=== PATIENT | male | born 1950 | race Caucasian/White ===

== ENCOUNTER 2018-09-22 14:14 | Observation (INO) ==
[2018-09-22 15:05] LABS: Basophils # 0.1 10*3/uL (0.0-0.2); Basophils % 1.6 % (0.0-0.8); Eosinophils # 0.1 10*3/uL (0.0-0.87); Eosinophils % 3.3 % (0.00-10.9); Hematocrit 40.8 VOL% (42.0-52.0); Hemoglobin 13.7 GM/DL (14.0-18.0); Immature Granulocytes % 1.2 %; Immature Granulocytes Absolute 0.05 #; Lymphocytes # 1.2 10*3/uL (1.4-4.0); Lymphocytes % 28.9 % (21.2-54.2); Mean Corpuscular HGB Conc 33.6 GM/DL (32-36); Mean Corpuscular Hemoglobin 29 PG (27-34); Mean Corpuscular Volume 86.1 FL (87-102); Mean Platelet Volume 11.3 FL (9.6-12.0); Monocytes # 0.6 10*3/uL (0.11-0.8); Monocytes % 14.8 % (1.7-12.7); Neutrophils # 2.1 10*3/uL (1.4-7.4); Neutrophils % 50.2 % (38.7-73.9); Platelet Count 291 T/CUMM (130-400); Red Blood Count 4.74 MC/CUMM (3.8-5.5); Red Cell Distribution Width 12.3 % (9.3-17.3); White Blood Count 4.3 T/CUMM (4-12)
[2018-09-22 15:11] LABS: PT Patient Result 10.6 SECS; Partial Thromboplastin Time 27.5 SECS (0-40)
[2018-09-22 15:21] LABS: Alanine Aminotransferase 65 U/L (16-61); Albumin 4.5 G/DL (3.4-5.0); Alkaline Phosphatase 77 U/L (45-117); Aspartate Amino Transferase 38 U/L (0-37); Bilirubin,Total < 0.39 MG/DL (0.2-1.0); Blood Urea Nitrogen 17 MG/DL (7-18); Calcium 9.2 MG/DL (8.5-10.1); Glucose 199 MG/DL (74-106); Osmolality,Calculated 280.8 MOS/KG (273-304); Potassium 4.2 MMOL/L (3.5-5.1); Sodium 137 MMOL/L (136-145); Total Protein 8.1 G/DL (6.4-8.3)
[2018-09-22] MEDS ORDERED: ASPIRIN 325 MG TABLET PO STA (16:47)
[2018-09-22] MEDS ORDERED: ALUM/MAG/SIMETH/LIDO VISC 1:1 30 ML BOTTLE PO STA (16:47)
[2018-09-22] MEDS ORDERED: ONDANSETRON 4 MG/2 ML VIAL IV PRN ×2 (16:47→19:12)
[2018-09-22] MEDS ORDERED: GLUCAGON 1 MG VIAL IM PRN (19:12)
[2018-09-22] MEDS ORDERED: DEXTROSE 50% 25 GM/50 ML SYRINGE IV PRN (19:12)
[2018-09-22] MEDS ORDERED: ACETAMINOPHEN 325 MG TABLET PO PRN (19:12)
[2018-09-22] MEDS ORDERED: ENOXAPARIN 40 MG/0.4 ML SYRINGE SUBCUT SCH (21:00)
[2018-09-22] MEDS: DOCUSATE SODIUM 100 MG CAPSULE PO SCH (21:09)
[2018-09-22] MEDS: SODIUM CHLORIDE 0.9% 1,000 ML IV SCH (21:09)
[2018-09-22] MEDS: INSULIN LISPRO 100 UNIT/ML SUBCUT SCH (21:53)
[2018-09-23] MEDS: SODIUM CHLORIDE 0.9% 1,000 ML IV SCH ×2 (04:20→11:43)
[2018-09-23 07:40] LABS: Troponin I < 0.015 NG/ML (0.00-0.045)
[2018-09-23] MEDS: INSULIN LISPRO 100 UNIT/ML SUBCUT SCH ×3 (08:59→15:54)
[2018-09-23] MEDS ORDERED: VITAMIN E 400 UNIT CAPSULE PO SCH (09:00)
[2018-09-23] MEDS ORDERED: ASPIRIN EC 81 MG TABLET PO SCH (09:00)
[2018-09-23] MEDS ORDERED: PANTOPRAZOLE 40 MG TABLET PO SCH ×2 (09:00→21:00)
[2018-09-23] MEDS ORDERED: GEMFIBROZIL 600 MG TABLET PO SCH (09:00)
[2018-09-23] MEDS ORDERED: LISINOPRIL 2.5 MG TABLET PO SCH (09:00)
[2018-09-23] MEDS ORDERED: CELECOXIB 200 MG CAPSULE PO SCH (09:00)
[2018-09-23] MEDS: DOCUSATE SODIUM 100 MG CAPSULE PO SCH (15:42)
[2018-09-23 16:06] VITALS: BP 141/86
[2018-09-23] MEDS ORDERED: metFORMIN 500 MG TABLET PO SCH (21:00)
[2018-09-23] MEDS ORDERED: sitaGLIPtin 25 MG TABLET PO SCH (21:00)
== END 2018-09-23 18:05 | disposition home or self-care (01) ==
LOC: N.ED 14:14 → N.EDINP 14:14 → N.TELEN 18:59
PROVIDERS: ADMIT Family Medicine; ATTEND Family Medicine